=== PATIENT | female | born 1970 | race Caucasian/White ===

== ENCOUNTER 2016-10-05 13:11 | Emergency (ER) | payer BC, OTHER ==
[~2016-10-05] VITALS: Ht 167.6 cm; Wt 53.7 kg
[2016-10-05 13:16] VITALS: TEMP 36.5; Ht 167.6 cm; Wt 53.7 kg
[2016-10-05] MEDS ORDERED: [UNRECOGNIZED DRUG - CODE] PO (13:29)
[2016-10-05 14:36] LABS: BASO % 0.2 %; BASO ABS # 0.02 K/uL (0-0.2); COMPLETE YES; EOS % 0.7 %; HEMATOCRIT 44.3 % (37-47); IG% 0.3 %; LYMPH % 14.8 %; LYMPH ABS # 1.54 K/uL (1.2-3.4); MEAN CELL VOLUME 89.9 fL (80-100); MEAN CORPUSCULAR HEMOGLOBIN 30.2 pg (25-34); MEAN CORPUSCULAR HGB CONC 33.6 g/dl (32-36); MEAN PLATELET VOLUME 11.4 fL (7.4-10.4); MONO % 4.1 %; NEUT % 79.9 %; PLATELET COUNT 292 K/uL (130-400); RED BLOOD COUNT 4.93 M/uL (4.2-5.4); WHITE BLOOD COUNT 10.44 K/uL (4.8-10.8)
--- NOTE | 2016-10-05 14:38 | DIAGNOSTIC IMAGING REPORT ---
CHEST ONE VIEW PORTABLE CLINICAL HISTORY: Weakness, dizziness, nausea, vomiting. COMPARISON STUDY: No previous studies for comparison. FINDINGS: The cardiac and mediastinal contours are normal. There is no evidence of focal pulmonary consolidation. There is no evidence of failure. No pleural effusions are visualized.[ IMPRESSION: No active disease in the chest. Electronically signed by: Sammy Keen M.D. 10/05/2016 2:36 PM Dictated Date/Time: 10/05/2016 2:36 PM
[2016-10-05 15:03] LABS: URINE APPEARANCE TURBID (CLEAR); URINE BILIRUBIN NEG (NEG); URINE COLOR YELLOW; URINE EPITHELIAL CELL AUTO >30 /lpf (0-5); URINE NITRITE NEG (NEG); URINE SPECIFIC GRAVITY 1.026 (1.000-1.030); UROBILINOGEN NEG (NEG)
[2016-10-05 15:05] LABS: CALCIUM 8.9 mg/dl (8.5-10.1); CREATININE 0.81 mg/dl (0.60-1.20); POTASSIUM 3.9 mmol/L (3.5-5.1)
[2016-10-05 15:08] LABS: PREG INTERNAL NEGATIVE QC NEG CLEAR BACKGROUND; PREG INTERNAL POSITIVE QC POS CONTROL LINE
[2016-10-05 15:10] LABS: CKMB/CK RATIO 1.8 (0-3.0)
[2016-10-05 15:15] LABS: MANUAL MICROSCOPIC REQUIRED? NO; REVIEW REQ? NO
[2016-10-05 15:48] LABS: LYME DISEASE AB IGG NEG (NEG); LYME DISEASE AB IGM NEG (NEG)
--- NOTE | 2016-10-05 16:30 | DIAGNOSTIC IMAGING REPORT ---
CT HEAD WITHOUT CONTRAST (CT) CLINICAL HISTORY: Acute onset lightheadedness. Nausea and vomiting. COMPARISON STUDY: No previous studies for comparison. TECHNIQUE: Axial CT of the brain is performed from the vertex to the skull base. IV contrast was not administered for this examination. CT DOSE: 537.48 mGy.cm FINDINGS: No intra or extra-axial mass lesions are visualized. There is no CT evidence of acute cortical infarction. There is no evidence of midline shift. There is no acute hemorrhage. No calvarial fractures are visualized. There are minimal white matter hypodensities likely on a small vessel basis. There is no evidence of pathologic ventricular dilatation. There is no evidence of acute sinusitis IMPRESSION: No acute intracranial findings Electronically signed by: Sammy Keen M.D. 10/05/2016 4:28 PM Dictated Date/Time: 10/05/2016 4:27 PM
[2016-10-05] MEDS ORDERED: MECL1TAB42 PO (16:48)
[2016-10-05 16:53] VITALS: BP 125/79; PULSE 83; O2SAT 99
[2016-10-05] MEDS ORDERED: IBUPROFEN 600 MG TAB PO STA (17:02)
[2016-10-05] MEDS ORDERED: MECLIZINE HCL 25 MG TAB PO STA (17:02)
--- NOTE | 2016-10-07 10:05 | EMERGENCY ROOM VISIT NOTE ---
ED Visit Note First contact with patient: 13:47 Chief Complaint: I really dizzy and weak. History of Present Illness: Ms. Vidal is a 45-year-old white female who ambulates into the ED accompanied by her [id number] complaining of dizziness , nausea, one episode of vomiting and sensations of weakness. Patient reports she has been feeling well over the last few days. This morning she woke from sleep and had her normal routine and went to work. While at work approximately an hour ago she reports she was talking to a fellow employee. She turned her head to go back to her office pain and had an acute onset of dizziness with nausea and one episode of vomiting. Since she has vomited and her symptoms she reports she is feeling very weak and feels like she cannot move because her symptoms will intensify. While evaluating my patient her dizziness had no any component and when I explained the difference between dizziness and lightheadedness she agreed her symptoms were more like lightheadedness. She reports the symptom has been constant since its onset. Her lightheadedness worsens with all movements of her head. She has not a then to find any alleviating factors related to the lightheadedness. She has not had any medications for her lightheadedness prior to arrival at the hospital. As previously noted she does feel the lightheadedness has made her extremely fatigued. She denies fevers, chills, sweats, skin eruptions, skin color changes, headache , recent head trauma, previous significant head injury/surgeries, visual changes , hearing changes, difficulty speaking, difficulty swallowing, difficulty ambulating/coordinating body movements, neck pain/stiffness, back pain, chest pain, shortness of breath, palpitations, abdominal pain, extremity weakness/ numbness/tingling. Review of Systems: As noted above in history of present illness. All body systems were reviewed and found to be negative as noted above. Past Medical History: Patient denies. Current Medications: control. Allergies to Medications: Patient denies. Social History: Patient is currently employed; she feels safe environment; she denies tobacco and alcohol use. Physical Examination: Vital Signs: Date Time Temp Pulse Resp B/P Pulse Ox O2 Delivery O2 Flow Rate FiO2 10/05/16 16:53 83 18 125/79 99 Room Air 10/05/16 14:30 85 18 98 Room Air 10/05/16 14:28 71 124/84 90 138/89 74 135/91 10/05/16 14:22 74 10/05/16 13:16 36.5 71 18 153/84 100 Room Air GENERAL: 45-year-old female in mild to moderate distress due to symptoms, nontoxic-appearing, afebrile and hemodynamically stable. Patient was found lying in a darkened room with her eyes closed. NEUROLOGICAL: Awake, alert and oriented to person, place and time. Answering questions appropriately and following commands. Cranial nerves II through XII grossly intact. Funduscopic examination was deferred due to lightheadedness. Short-term and long-term recall. Good hand eye coordination. No focal motor or sensory deficits. Normal rapid alternating movements of the hands and fingers. After resolution of most of her discomfort she had a normal gait. Romberg test negative. Pronator drift test negative. SKIN: Warm, dry and pink. No soft tissue eruptions or trauma noted. HEENT: Atraumatic and normocephalic. PERRLA. EOMI without nystagmus. External ears are nontender. Auditory canals are pink and patent. Tympanic membranes were pearly whitney with normal light reflex. No carotid bruits. Sclera white and conjunctiva pink. No drainage from naris. Oral cavity moist and pink. Pharynx is nonerythematous or edematous. Speech normal. No lymphadenopathy. Trachea midline. No jugular venous distention. BACK: No tenderness over the bony spine. No CVA tenderness. THORAX: Lungs sounds are clear to auscultation and equal bilaterally with symmetrical chest wall. No wheezing, rales or rhonchi. No crepitus, tenderness , subcutaneous air or deformities noted. HEART: Regular rate and rhythm. No gallops, rubs or murmurs are appreciated. ABDOMEN: Flat, soft and nontender. Positive bowel sounds in all quadrants. No guarding, rigidity or organomegaly. EXTREMITIES: Moves all extremities well on command and with purpose. All distal neurovascular statuses are intact and equal bilaterally. No calf tenderness or cords. 4/5 muscle strength in flexion, extension, abduction and abduction of the shoulders and hips, flexion and extension of the elbows, wrists and knees, pronation and supination of forearms, plantar flexion and dorsiflexion of the ankles and paraprofessional aide strength. ED Course: Patient is assessed as noted above. Laboratory Testing: Test 10/05/16 14:25 10/05/16 14:28 10/05/16 14:30 Range/Units White Blood Count 10.44 4.8-10.8 K/uL Red Blood Count 4.93 4.2-5.4 M/uL Hemoglobin 14.9 12.0-16.0 g/dL Hematocrit 44.3 37-47 % Mean Corpuscular Volume 89.9 80-100 fL Mean Corpuscular Hemoglobin 30.2 25-34 pg Mean Corpuscular Hemoglobin Concent 33.6 32-36 g/dl Platelet Count 292 130-400 K/uL Mean Platelet Volume 11.4 7.4-10.4 fL Neutrophils (%) (Auto) 79.9 % Lymphocytes (%) (Auto) 14.8 % Monocytes (%) (Auto) 4.1 % Eosinophils (%) (Auto) 0.7 % Basophils (%) (Auto) 0.2 % Neutrophils # (Auto) 8.35 1.4-6.5 K/uL Lymphocytes # (Auto) 1.54 1.2-3.4 K/uL Monocytes # (Auto) 0.43 0.11-0.59 K/uL Eosinophils # (Auto) 0.07 0-0.5 K/uL Basophils # (Auto) 0.02 0-0.2 K/uL RDW Standard Deviation 42.0 36.4-46.3 fL RDW Coefficient of Variation 13.0 11.5-14.5 % Immature Granulocyte % (Auto) 0.3 % Immature Granulocyte # (Auto) 0.03 0.00-0.02 K/uL Urine Color YELLOW Urine Appearance TURBID CLEAR Urine pH 7.0 4.5-7.5 Urine Specific [place] 1.026 1.000-1.030 Urine Protein TRACE NEG Urine Glucose (UA) NEG NEG Urine Ketones 1+ NEG Urine Occult Blood NEG NEG Urine Nitrite NEG NEG Urine Bilirubin NEG NEG Urine Urobilinogen NEG NEG Urine Leukocyte Esterase NEG NEG Urine WBC (Auto) 0 0-5 /hpf Urine RBC (Auto) 0-4 0-4 /hpf Urine Hyaline Casts (Auto) 1-5 0-5 /lpf Urine Epithelial Cells (Auto) >30 0-5 /lpf Urine Bacteria (Auto) NEG NEG Sodium Level 139 136-145 mmol/L Potassium Level 3.9 3.5-5.1 mmol/L Chloride Level 104 98-107 mmol/L Carbon Dioxide Level 22 21-32 mmol/L Anion Gap 13.0 3-11 mmol/L Blood Urea Nitrogen 14 7-18 mg/dl Creatinine 0.81 0.60-1.20 mg/dl Est Creatinine Clear Calc Drug Dose 75.9 ml/min Estimated GFR () 103.1 Estimated GFR (Non- 89.0 BUN/Creatinine Ratio 17.0 10-20 Random Glucose 102 70-99 mg/dl Calcium Level 8.9 8.5-10.1 mg/dl Total Bilirubin 0.4 0.2-1 mg/dl Direct Bilirubin 0.1 0-0.2 mg/dl Aspartate Amino Transf (AST/SGOT) 12 15-37 U/L Alanine Aminotransferase (ALT/SGPT) 25 12-78 U/L Alkaline Phosphatase 44 45-117 U/L Total Creatine Kinase 51 26-192 U/L Creatine Kinase MB 0.9 0.5-3.6 ng/ml Creatine Kinase MB Ratio 1.8 0-3.0 Total Protein 8.1 6.4-8.2 gm/dl Albumin 4.3 3.4-5.0 gm/dl Lipase 208 73-393 U/L Human Chorionic Gonadotropin, Qual NEG NEG Lyme Disease IgG Antibody NEG NEG Lyme Disease IgM Antibody NEG NEG Bedside Troponin I 0.000 0-0.045 ng/ml Influenza Type A Antigen Neg for Influ A NEG Influenza Type B Antigen Neg for Influ B NEG EKG: Was read by myself and reviewed with Dr. Hall; shows normal sinus rhythm with short OR interval. Ventricular rate 71 bpm. Normal axis, intervals and complexes. No acute ST changes and ischemia. No previous EKGs trauma record. Chest X-Rays: Were read by myself and shows no acute infiltrates, effusions or pneumothorax. Normal heart silhouette and bony anatomy. Orthostatic signs were unremarkable. Her stay in the emergency department patient reports that she started developing a headache behind her eyes. She was offered pain medication and refused. She continued to have lightheadedness sensations after blood work and EKGs were reviewed. I did offer her head CT for further evaluation and she agreed. Noncontrasted Head CT: Was reviewed by myself and read by the radiologist and shows no acute intracranial findings. Patient was given 600 mg of ibuprofen for her headache by mouth and 25 mg of Meclizine by mouth for her lightheadedness. Patient was reassessed multiple times during her stay in the emergency department. Patient's case was reviewed with Dr. Card; we agreed on diagnostic approach, treatment, disposition and plan. Patient was educated about tonight's findings and instructed on her treatment plan; she verbalizes understanding and agreement with this plan. Clinical Impression: Vertigo. Decision-Making: Initially my differential diagnosis I considered vertigo, GI bleed, intracranial bleed, Lyme's disease, dehydration, stress/anxiety, arrhythmia, NC and other causes. Disposition: Patient discharged home in stable condition accompanied by family member; prior to departure she was reassessed and subjectively reported she was feeling better. Also prior to departure she was ambulated around the department and was able to do so without difficulty and she was able to tolerate fluids and food. Plan: Patient was encouraged to use ibuprofen or acetaminophen as needed for pain. Patient was prescribed 25 mg of Meclizine every 6 hours as needed for dizziness/ lightheadedness/vertigo symptoms. Patient was encouraged to stay well-hydrated and avoid alcohol. Patient was encouraged to follow-up with her PCP for recheck. Patient was encouraged return the ED for worsening symptoms, severe headaches, uncontrolled vomiting, any new abnormal neurological symptoms or any new/ concerning symptom
== END 2016-10-05 17:00 | disposition home or self-care (01) ==
LOC: C.EDB 13:12
DX: R42 Dizziness and giddiness (principal)

== ENCOUNTER → 2016-10-29 | Outpatient (CLI) | payer BC ==
[~2016-10-29] MED LIST: MECL1TAB42 PO; [UNRECOGNIZED DRUG - CODE] PO
== END | disposition home or self-care (01) ==
LOC: C.PAPS 12:59
PROVIDERS: ATTEND Obstetrics & Gynecology
DX: Z01.419 Encounter for gynecological examination (general) (routine) without abnormal findings (principal)

== ENCOUNTER → 2017-11-04 | Outpatient (CLI) | payer OTHER ==
[~2017-11-04] MED LIST changes: +[UNRECOGNIZED DRUG - CODE] PO; -[UNRECOGNIZED DRUG - CODE] PO
== END | disposition home or self-care (01) ==
LOC: C.PAPS 12:03
PROVIDERS: ATTEND Obstetrics & Gynecology
DX: Z01.419 Encounter for gynecological examination (general) (routine) without abnormal findings (principal)